=== PATIENT | male | born 1950 | race Caucasian/White ===

== ENCOUNTER 2016-03-31 18:04 | Emergency (ER) | payer OTHER ==
[~2016-03-31] VITALS: Ht 177.8 cm; Wt 77.1 kg
[2016-03-31] MEDS ORDERED: METFORMIN HCL500 M1 ORAL (18:20)
[2016-03-31] MEDS ORDERED: Ampicillin/Sulbactam Sod 3 GM in NS 110 ML IVPB ONE (18:45)
[2016-03-31] MEDS ORDERED: Unasyn 3gm Inj ONE (18:47)
[2016-03-31 18:58] VITALS: BP 150/83
[2016-03-31 19:29] LABS: BASOPHILS % (AUTO) 2.2 % (0.0-2.0); EOSINOPHILS % (AUTO) 4.7 % (0.0-3.0); LYMPHOCYTES % (AUTO) 39.7 % (20.0-45.0); MEAN CORPUSCULAR VOLUME 91 FL (80-99); MEAN PLATELET VOLUME 6.6 FL (6.5-10.1); MONOCYTES % (AUTO) 7.7 % (1.0-10.0); NEUTROPHILS % (AUTO) 45.7 % (45.0-75.0); PLATELET COUNT 280 K/UL (150-450); RED BLOOD COUNT 5.24 M/UL (4.70-6.10); RED CELL DISTRIBUTION WIDTH 12.7 % (11.6-14.8); WHITE BLOOD COUNT 8.2 K/UL (4.8-10.8)
[2016-03-31 19:58] LABS: ALANINE AMINOTRANSFERASE 32 U/L (3-41); ALBUMIN/GLOBULIN RATIO 1.3 (1.0-2.7); ANION GAP 19 (5-15); ASPARTATE AMINO TRANSFERASE 35 U/L (5-40); CALCIUM 9.6 mg/dL (8.6-10.2); CARBON DIOXIDE 23 mEQ/L (20-30); CHLORIDE 94 mEQ/L (98-107); GLOMERULAR FILTRATION RATE > 60 mL/min (>60); POTASSIUM 4.4 mEQ/L (3.4-4.9); SODIUM 136 mEQ/L (135-145); TOTAL PROTEIN 7.8 g/dL (6.6-8.7)
[2016-03-31] MEDS ORDERED: BACTRIM DS TAB1 EAC1 ORAL (20:08)
[2016-03-31] MEDS ORDERED: Bacitracin Oint UD TOPIC ONE ×2 (20:13→20:15)
[2016-03-31 20:18] VITALS: BP 144/79
[2016-03-31 20:20] VITALS: BP 144/79
--- NOTE | 2016-03-31 21:21 | Emergency Room Report ---
History of Present Illness General Chief Complaint: Skin Rash/Abscess Source: Patient Present Illness HPI The patient is a 65-year-old male with a history of diabetes presenting for possible left toe infection. The patient first noticed redness of the left toe 2 weeks prior and has been worsening. The patient denies any pain or numbness/ tingling. The patient denies any known injury to the toe and denies prior injury to the foot. The patient was seen by his primary doctor today, given a prescription for Keflex, and told to go to the emergency department. The patient denies any other complaints including N, V, F, CP, SOB Allergies: Coded Allergies: No Known Allergies (Unverified , 03/31/16) Patient History Past Medical History: see triage record, DM Pertinent Family History: none Reviewed Nursing Documentation: PMH: Agreed, PSxH: Agreed Nursing Documentation-PMH Hx Hypertension: Yes Hx Diabetes: Yes Review of Systems All Other Systems: negative except mentioned in HPI Physical Exam Vital Signs Date Time Temp Pulse Resp B/P Pulse Ox O2 Delivery O2 Flow Rate FiO2 03/31/16 18:17 97.7 81 20 150/83 99 Room Air Sp02 EP Interpretation: reviewed, normal General Appearance: no apparent distress, alert, GCS 15, non-toxic Head: normocephalic, atraumatic Eyes: bilateral eye PERRL, bilateral eye normal inspection ENT: hearing grossly normal, normal pharynx, no angioedema, normal voice Musculoskeletal: back normal, gait/station normal, normal range of motion, tender - TTP over the L toe distal to MTPJ Neurologic: alert, oriented x3, responsive, motor strength/tone normal, sensory intact, normal gait, speech normal Psychiatric: judgement/insight normal, memory normal, mood/affect normal, no suicidal/homicidal ideation Skin: well hydrated, other - There is a 2cm shallow ulcer of the L toe with surrounding erythema. No DC Lymphatic: no adenopathy Medical Decision Making PA Attestation Dr. Garcia is my supervising physician. Patient management was discussed with my supervising physician Diagnostic Impression: Primary Impression: Cellulitis Additional Impression: Ulcer of foot ER Course The patient is a 65-year-old male with a history of diabetes presenting for possible left toe infection Ddx considered include but not limited to cellulitis, abscess, osteomyelitis PE: Vitals WNL. NAD There is a 2cm shallow ulcer of the L toe distal to MTPJ with surrounding erythema. No DC. Full AROM. SILT. Labs: CBC: No leukocytosis. CMP: hyperglycemia, otherwise unremarkable ESR and CRP WNL. XRAY: No acute fractures, soft tissue swelling, gas, or evident osteomyelitis. The pt was given unasyn. Wound cleaned and bacitracin applied with sterile dressing. The patient will be discharged home with a prescription for Bactrim. The patient will continue to take the Keflex as directed by his primary care physician. ER precautions are given and the patient is told that he needs to obtain referral for traffic or system dispatcher. Laboratory Tests Test 03/31/16 18:55 White Blood Count 8.2 K/UL (4.8-10.8) Red Blood Count 5.24 M/UL (4.70-6.10) Hemoglobin 15.2 G/DL (14.2-18.0) Hematocrit 47.5 % (42.0-52.0) Mean Corpuscular Volume 91 FL (80-99) Mean Corpuscular Hemoglobin 29.0 PG (27.0-31.0) Mean Corpuscular Hemoglobin Concent 32.0 G/DL (32.0-36.0) Red Cell Distribution Width 12.7 % (11.6-14.8) Platelet Count 280 K/UL (150-450) Mean Platelet Volume 6.6 FL (6.5-10.1) Neutrophils (%) (Auto) 45.7 % (45.0-75.0) Lymphocytes (%) (Auto) 39.7 % (20.0-45.0) Monocytes (%) (Auto) 7.7 % (1.0-10.0) Eosinophils (%) (Auto) 4.7 % (0.0-3.0) H Basophils (%) (Auto) 2.2 % (0.0-2.0) H Erythrocyte Sedimentation Rate 4 MM/HR (0-20) Sodium Level 136 mEQ/L (135-145) Potassium Level 4.4 mEQ/L (3.4-4.9) Chloride Level 94 mEQ/L (98-107) L Carbon Dioxide Level 23 mEQ/L (20-30) Anion Gap 19 (5-15) H Blood Urea Nitrogen 22 mg/dL (7-23) Creatinine 1.0 mg/dL (0.7-1.2) Estimate Glomerular Filtration Rate > 60 mL/min (>60) Glucose Level 232 mg/dL (74-106) H Calcium Level 9.6 mg/dL (8.6-10.2) Total Bilirubin 0.3 mg/dL (0.0-1.2) Aspartate Amino Transferase (AST) 35 U/L (5-40) Alanine Aminotransferase (ALT) 32 U/L (3-41) Alkaline Phosphatase 52 U/L (40-129) C-Reactive Protein, Quantitative < 0.3 mg/dL (< 0.5) Total Protein 7.8 g/dL (6.6-8.7) Albumin 4.5 g/dL (3.5-5.2) Globulin 3.3 g/dL Albumin/Globulin Ratio 1.3 (1.0-2.7) Lab Results Impression CBC: No leukocytosis. CMP: hyperglycemia, otherwise unremarkable ESR and CRP WNL. Other X-Ray Diagnostic Results Other X-Ray Diagnostic Results : X-Ray Ordered: L foot Date: Mar 31, 2016 EP Interpretation: Yes Findings: no fractures, no dislocation, no soft tissue swelling Number of Views: 3 PA Scribe Text I am acting as scribe for my supervising physician. My supervising physician's interpretation of the L foot xrays are there are no fractures, dislocations or soft tissue swelling. No evident Osteomyelitis Last Vital Signs Date Time Temp Pulse Resp B/P Pulse Ox O2 Delivery O2 Flow Rate FiO2 03/31/16 20:20 97.7 79 18 144/79 99 Room Air Status: improved Disposition: HOME, SELF-CARE Condition: Improved Scripts Trimethoprim/Sulfamethoxazole 160/800* (BACTRIM DS TABLET*) 1 Each Tablet 1 TAB ORAL TWICE A DAY, #20 TAB Prov: TONY MOLINA PRadha 03/31/16 Patient Instructions: Cellulitis, Skin Ulcer Additional Instructions: I discussed my findings with the patient. All questions and concerns have been answered. Treatment and medication compliance have been addressed. I advised the patient that they need to follow up with PMD in 3-5 days. Return to ED if symptoms worsen, new symptoms arise, or if needed for any reason. Patient verbalized understanding of discharge instructions. The patient is told that he needs to followup with primary care physician as soon as possible and possibly obtain referral for traffic or system dispatcher TONY MOLINA Mar 31, 2016 21:21
--- NOTE | 2016-04-02 13:45 | Diagnostic Imaging Report ---
Indications: Foot ulcer, pain Technique: 3 views of the the foot Comparison: Findings: There is hallux valgus and metatarsus adductus. There is bunion formation. There are degenerative changes of the first metatarsophalangeal joint There is minimal hammertoe deformity of the second through fifth digits. No acute fractures. No dislocations. There is small calcaneal spur. No acute fractures. No dislocations. Joint spaces are preserved. No radiopaque foreign body. Normal mineralization no definite osseous erosions. No radiopaque foreign body Impression: Degenerative changes and deformities, as described No definite plain radiographic findings to suggest acute osteomyelitis. Note, however, that plain radiographic evaluation for such is limited. There is high clinical suspicion, consider MRI or nuclear medicine bone scan for better characterization No acute process This agrees with the preliminary interpretation provided overnight by Dr. Deleon
== END 2016-03-31 20:21 | disposition home or self-care (01) ==
LOC: EMR 18:30
DX: L97.529 Non-pressure chronic ulcer of other part of left foot with unspecified severity (principal); L03.032 Cellulitis of left toe; E11.9 Type 2 diabetes mellitus without complications; I10 Essential (primary) hypertension
CPT/HCPCS: 36415; 73630; 80053; 85025; 85651; 86140; 96374; 99284; J0295